=== PATIENT | female | born 1945 | race Caucasian/White ===

== ENCOUNTER 2016-09-29 12:30 | Emergency (ER) | payer MEDICARE ==
[~2016-09-29] VITALS: Ht 154.9 cm; Wt 47.0 kg
[~2016-09-29 12:30] MED LIST: ADVAI500I PO; ALBU0.086 NEB; ALBU1AER INH; DORZSOL RIGHT EYE; FLOV220A INH; LISI-360 PO; SYNT112T PO; TAFL1DRO12 RIGHT EYE; TRIA.1%T TOP
[2016-09-29 12:37] VITALS: BP 161/83; PULSE 78; RESP 18; TEMP 97.7; O2SAT 98
[2016-09-29 12:44] VITALS: BP 161/83; PULSE 78; RESP 18; TEMP 97.7; O2SAT 98
[2016-09-29 13:03] LABS: AUTOMATED NEUTROPHIL # 2.7 TH/MM3 (1.8-7.7); EOSINOPHIL # 0.1 TH/MM3 (0-0.4); HEMO FLAGS DIFF FINAL; LYMPH % 23.5 % (9.0-44.0); LYMPHOCYTE # 1.1 TH/MM3 (1.0-4.8); MEAN CELL VOLUME 90.9 FL (80.0-100.0); MEAN CORPUSCULAR HEMOGLOBIN 29.4 PG (27.0-34.0); MEAN CORPUSCULAR HGB CONC 32.4 % (32.0-36.0); MONO % 13.1 % (0.0-8.0); NEUT % 60.4 % (16.0-70.0); PLATELET COUNT 265 TH/MM3 (150-450); RED BLOOD COUNT 4.62 MIL/MM3 (4.00-5.30); RED CELL DISTRIBUTION WIDTH 14.3 % (11.6-17.2); WHITE BLOOD COUNT 4.5 TH/MM3 (4.0-11.0)
--- NOTE | 2016-09-29 13:07 | PD ---
HPI Chief Complaint: Psychiatric Symptoms Time Seen by Provider: 13:03 Travel History International Travel<30 days: No Contact w/Intl Traveler<30days: No Traveled to known affect area: No History of Present Illness HPI 71-year-old female that presents to the ED for evaluation of involuntary psych evaluation. Patient states that her sister who is power of family law attorney apparently contacted the learning analyst who brought her here for evaluation of psychiatry. Per patient he needs unclear as to why. Per patient her sister has been aggressive towards her and it appears to be related to some family dispute. She does tell me that she does have a history of depression but she doesn't take any medications for this. She denies any pain of any kind. She does have a history of Graves' disease with a tire removed and now takes thyroid medication. She states that she is compliant with her other medications. No diabetes. She denies any homicidal or suicidal ideation to me. No drug or alcohol abuse. She has never been here before for psychiatric evaluation but has been here for medical issues. Patient lives in assisted living facility. Again is unclear as to why she is here. Patient was not Landry acted per brought here voluntarily for psychiatric evaluation which she agrees to do. Symptoms appear to be mild. Unclear length of time. No other further history is obtained. PFSH Past Medical History Hx Anticoagulant Therapy: No Arthritis: Yes Asthma: Yes Autoimmune Disease: Yes (CELIAC, GRAVES DISEASE) Anxiety: No Depression: Yes (AFTER ) Heart Rhythm Problems: No Cancer: No Cardiovascular Problems: Yes High Cholesterol: No Chemotherapy: No Chest Pain: No Congestive Heart Failure: No COPD: No Cerebrovascular Accident: No Diabetes: No Diminished Hearing: No Endocrine: Yes Gastrointestinal Disorders: Yes (IBS) GERD: No Glaucoma: Yes Hiatal Hernia: No Hypertension: Yes Implanted Vascular Access Dvce: Yes Musculoskeletal: Yes Respiratory: Yes (ASTHMA) Sleep Apnea: No Thyroid Disease: Yes Tetanus Vaccination: < 5 Years Influenza Vaccination: Yes ?: Not Menopausal: Yes Dilation and Curettage (D&C): Yes (7 TIMES) Past Surgical History Abdominal Surgery: Yes (HERNIA REPAIR) AICD: No Arteriovenous Shunt: No Cardiac Surgery: No Ear Surgery: No Endocrine Surgery: No Eye Surgery: Yes (LENS FOR CATARACTS) Genitourinary Surgery: No Gynecologic Surgery: Yes (OVARIES REMOVED) Hysterectomy: Yes Insulin Pump: No Joint Replacement: Yes (L KNEE) Neurologic Surgery: No Oral Surgery: No Pacemaker: No Thoracic Surgery: No Other Surgery: Yes (THYROID REMOVED) Social History Alcohol Use: No Tobacco Use: No Substance Use: No Allergies-Medications (Allergen,Severity, Reaction): Coded Allergies: Cat Dander (Verified Allergy, Severe, 01/21/16) Lactose (Verified Allergy, Severe, 01/21/16) Green Jean (Verified Allergy, Intermediate, DIARRHEA, 01/21/16) Vazquez Jean (Verified Allergy, Intermediate, DIARRHEA, 01/21/16) White Jean (Verified Allergy, Intermediate, DIARRHEA, 01/21/16) Barley (Unverified Allergy, Unknown, 01/21/16) Dog Dander (Verified Allergy, Unknown, 01/21/16) [place] (Unverified Allergy, Unknown, 01/21/16) Shellfish (Verified Allergy, Unknown, 01/21/16) Wheat (Verified Allergy, Unknown, 01/21/16) Uncoded Allergies: PYRANTEL (Allergy, Unknown, UNKNOWN., 12/14/15) PEN-X (Adverse Reaction, Severe, Anaphylaxis., 12/14/15) Reported Meds & Prescriptions Reported Meds & Active Scripts Active Triamcinolone Acetonide 0.1 % Cre 1 Applic TOP Q12HR APPLY TO: Reported Lisinopril 10 mg (Lisinopril) 10 Mg Tab Unknown Dose PO DAILY Zioptan (Tafluprost) 0.0015 % Petar 1 Drop RIGHT EYE HS Cosopt Pf (Dorzolamide Hcl-Timolol Maleat) Barbara 1 Drop RIGHT EYE BID Proventil Ud 0.083% (2.5 Mg/3 Ml) (Albuterol Sulfate) 2.5 Mg/3 Ml Inha 2.5 Mg NEB Q6HR NEB Advair Diskus 500/50 (Salmeterol Xinafoate/Fluticasone) Fluticasone/Salmeterol 500/50 Inh 1 Puff PO BID Proair Hfa (Albuterol Sulfate) 8.5 Gm Aero 1 Puff INH Q6H PRN * SHAKE WELL BEFORE USE * Flovent Hfa (Fluticasone Propionate) 220 Mcg Aer 2 Puff INH BID Synthroid (Levothyroxine Sodium) 112 Mcg Tab 112 Mcg PO DAILY Review of Systems Except as stated in HPI: all other systems reviewed are Neg Physical Exam Narrative GENERAL: SKIN: Warm and dry. HEAD: Atraumatic. Normocephalic. EYES: Pupils equal and round. No scleral icterus. No injection or drainage. ENT: No nasal bleeding or discharge. Mucous membranes pink and moist. tongue is midline. No uvula deviation NECK: Trachea midline. No JVD. CARDIOVASCULAR: Regular rate and rhythm. RESPIRATORY: No accessory muscle use. Clear to auscultation. Breath sounds equal bilaterally. GASTROINTESTINAL: Abdomen soft, non-tender, nondistended. Hepatic and splenic margins not palpable. MUSCULOSKELETAL: Extremities without clubbing, cyanosis, or edema. No obvious deformities. Full range of motion of the upper and lower extremities bilaterally. 2+ pulses bilaterally. NEUROLOGICAL: Awake and alert. No obvious cranial nerve deficits. Motor grossly within normal limits. Five out of 5 muscle strength in the arms and legs. Normal speech. PSYCHIATRIC: Appropriate mood and affect; insight and judgment normal. Data Data Last Documented VS Vital Signs Date Time Temp Pulse Resp B/P Pulse Ox O2 Delivery O2 Flow Rate FiO2 09/29/16 12:44 97.7 78 18 161/83 98 Room Air Orders Complete Blood Count With Diff (09/29/16 12:35) Comprehensive Metabolic Panel (09/29/16 12:35) Thyroid Stimulating Hormone (09/29/16 12:35) Urinalysis - C+S If Indicated (09/29/16 12:35) Psych Screen (09/29/16 12:35) Drug Screen, Random Urine (09/29/16 12:35) Alcohol (Ethanol) (09/29/16 12:35) Labs Laboratory Tests Test 09/29/16 12:45 White Blood Count 4.5 TH/MM3 Red Blood Count 4.62 MIL/MM3 Hemoglobin 13.6 GM/DL Hematocrit 42.0 % Mean Corpuscular Volume 90.9 FL Mean Corpuscular Hemoglobin 29.4 PG Mean Corpuscular Hemoglobin 32.4 % Concent Red Cell Distribution Width 14.3 % Platelet Count 265 TH/MM3 Mean Platelet Volume 10.3 FL Neutrophils (%) (Auto) 60.4 % Lymphocytes (%) (Auto) 23.5 % Monocytes (%) (Auto) 13.1 % Eosinophils (%) (Auto) 2.0 % Basophils (%) (Auto) 1.0 % Neutrophils # (Auto) 2.7 TH/MM3 Lymphocytes # (Auto) 1.1 TH/MM3 Monocytes # (Auto) 0.6 TH/MM3 Eosinophils # (Auto) 0.1 TH/MM3 Basophils # (Auto) 0.0 TH/MM3 CBC Comment DIFF FINAL Differential Comment Sodium Level 136 MEQ/L Potassium Level 3.7 MEQ/L Chloride Level 106 MEQ/L Carbon Dioxide Level 22.8 MEQ/L Anion Gap 7 MEQ/L Blood Urea Nitrogen 8 MG/DL Creatinine 0.82 MG/DL Estimat Glomerular Filtration 69 ML/MIN Rate Random Glucose 108 MG/DL Calcium Level 9.1 MG/DL Aspartate Amino Transf 20 U/L (AST/SGOT) Albumin 3.7 GM/DL MDM Medical Decision Making Medical Screen Exam Complete: Yes Emergency Medical Condition: Yes Medical Record Reviewed: Yes Interpretation(s) CBC & BMP Diagram 09/29/16 12:45 Differential Diagnosis Depression versus suicidal ideation versus anxiety versus adjustment disorder versus mood disorder versus bipolar disorder versus schizophrenia versus paranoid disorder versus psychosis versus substance abuse versus alcohol abuse versus alcohol induced psychosis versus homicidality addition versus cutting versus personality disorder Narrative Course 71-year-old female that presents to the ED for evaluation of psych. Patient was properly examined and was found to have signs and symptoms consistent with psychiatric illness. No sign of acute medical distress. Labs were drawn. Patient will be medically clear. Okay to be seen by psych. Mental health screening was discussed with the patient. Diagnosis Primary Impression: Mood disorder Khadar Black Sep 29, 2016 13:07
[2016-09-29 13:21] LABS: ANION GAP 7 MEQ/L (5-15); AST (GOT) 20 U/L (15-37); BICARBONATE 22.8 MEQ/L (21.0-32.0); BLOOD UREA NITROGEN 8 MG/DL (7-18); CHLORIDE 106 MEQ/L (98-107); GLOMERULAR FILTRATION RATE 69 ML/MIN (>89); POTASSIUM 3.7 MEQ/L (3.5-5.1); SODIUM (NA) 136 MEQ/L (136-145)
[2016-09-29 13:34] LABS: ALKALINE PHOSPHATASE 80 U/L (45-117); ALT (GPT) 23 U/L (10-53); TOTAL BILIRUBIN ADULT 0.4 MG/DL (0.2-1.0)
[2016-09-29] MEDS ORDERED: RITA20TA PO (14:50)
[2016-09-29] MEDS ORDERED: ZYRT10CA PO (14:52)
[2016-09-29] MEDS ORDERED: LISI10TA3 PO (14:52)
[2016-09-29] MEDS ORDERED: ACETA500 PO (14:54)
[2016-09-29] MEDS ORDERED: DIFL0.0512 RIGHT EYE (14:54)
[2016-09-29] MEDS ORDERED: TAFL0.00 RIGHT EYE (14:54)
[2016-09-29] MEDS ORDERED: SYNT88TA PO (14:54)
[2016-09-29] MEDS ORDERED: DORZ1SOL2 EACH EYE (15:07)
[2016-09-29] MEDS ORDERED: ADVA500A INH (15:07)
[2016-09-29] MEDS ORDERED: ALBU0.08 NEB (15:07)
[2016-09-29] MEDS ORDERED: ALBUAER3 INH (15:07)
[2016-09-29 16:37] LABS: BLOOD, URINE NEG (NEG); COMMENT (UR) CULT NOT INDICATED; CULTURE IF INDICATED CULT NOT INDICATED; GLUCOSE,URINE NEG (NEG); KETONE, URINE NEG (NEG); MUCUS URINE FEW /lpf (OCC); NITRITE,URINE NEG (NEG); SQUAMOUS EPITHELIAL CELL URINE 1 /hpf (0-5); URINE COLOR LIGHT-YELLOW (YELLW/STRAW)
[2016-09-29 17:25] LABS: AMPHETAMINE, URINE NEG (NEG); BARBITURATES, URINE NEG (NEG); COCAINE, URINE NEG (NEG)
== END 2016-09-29 18:22 | disposition home or self-care (01) ==
LOC: NEPE 12:30 → NEPJ 18:22
DX: F39 Unspecified mood [affective] disorder (principal); F32.9 Major depressive disorder, single episode, unspecified; J45.909 Unspecified asthma, uncomplicated; K58.9 Irritable bowel syndrome, unspecified; I10 Essential (primary) hypertension
CPT/HCPCS: 80053; 80307; 81001; 84443; 85025; 99283

== ENCOUNTER 2016-10-02 12:36 | Emergency (ER) | payer MEDICARE, OTHER ==
[~2016-10-02] VITALS: Ht 154.9 cm; Wt 50.0 kg
[~2016-10-02 12:36] MED LIST changes: +ACETA500 PO; +ADVA500A INH; -ADVAI500I PO; +ALBU0.08 NEB; -ALBU0.086 NEB; -ALBU1AER INH; +ALBUAER3 INH; +DIFL0.0512 RIGHT EYE; +DORZ1SOL2 EACH EYE; -DORZSOL RIGHT EYE; -FLOV220A INH; -LISI-360 PO; +LISI10TA3 PO; +RITA20TA PO; -SYNT112T PO; +SYNT88TA PO; +TAFL0.00 RIGHT EYE; -TAFL1DRO12 RIGHT EYE; -TRIA.1%T TOP; +ZYRT10CA PO
[2016-10-02 12:59] VITALS: BP 134/63; PULSE 71; RESP 16; TEMP 98; O2SAT 100
--- NOTE | 2016-10-02 13:14 | PD ---
HPI Chief Complaint: Psychiatric Symptoms Time Seen by Provider: 12:55 Travel History International Travel<30 days: No Contact w/Intl Traveler<30days: No Traveled to known affect area: No History of Present Illness HPI The patient was seen and examined in the presence of the nurse. This patient is brought in under police Landry act. According to the Landry act form, she was found wandering around outside naked near her [place]IN[place]. Patient cannot give a cohesive answers to what she was doing. She denies hallucination or suicidal ideation. Symptoms severity is moderate. No alleviating factors. Duration one day. PFSH Past Medical History Hx Anticoagulant Therapy: No Arthritis: Yes Asthma: Yes Autoimmune Disease: Yes (CELIAC, GRAVES DISEASE) Anxiety: No Depression: Yes (AFTER ) Heart Rhythm Problems: No Cancer: No Cardiovascular Problems: Yes High Cholesterol: No Chemotherapy: No Chest Pain: No Congestive Heart Failure: No COPD: No Cerebrovascular Accident: No Diabetes: No Diminished Hearing: No Endocrine: Yes Gastrointestinal Disorders: Yes (IBS) GERD: No Glaucoma: Yes Hiatal Hernia: No Hypertension: Yes Implanted Vascular Access Dvce: Yes Musculoskeletal: Yes Respiratory: Yes (ASTHMA) Sleep Apnea: No Thyroid Disease: Yes Menopausal: Yes Dilation and Curettage (D&C): Yes (7 TIMES) Past Surgical History Abdominal Surgery: Yes (HERNIA REPAIR) AICD: No Arteriovenous Shunt: No Cardiac Surgery: No Ear Surgery: No Endocrine Surgery: No Eye Surgery: Yes (LENS FOR CATARACTS) Genitourinary Surgery: No Gynecologic Surgery: Yes (OVARIES REMOVED) Hysterectomy: Yes Insulin Pump: No Joint Replacement: Yes (L KNEE) Neurologic Surgery: No Oral Surgery: No Pacemaker: No Thoracic Surgery: No Other Surgery: Yes (THYROID REMOVED) Social History Alcohol Use: No Tobacco Use: No Substance Use: No Allergies-Medications (Allergen,Severity, Reaction): Coded Allergies: Cat Dander (Verified Allergy, Severe, 10/02/16) Lactose (Verified Allergy, Severe, 10/02/16) Green Jean (Verified Allergy, Intermediate, DIARRHEA, 10/02/16) Vazquez Jean (Verified Allergy, Intermediate, DIARRHEA, 10/02/16) White Jean (Verified Allergy, Intermediate, DIARRHEA, 10/02/16) Barley (Unverified Allergy, Unknown, 10/02/16) Dog Dander (Verified Allergy, Unknown, 10/02/16) [place] (Unverified Allergy, Unknown, 10/02/16) Shellfish (Verified Allergy, Unknown, 10/02/16) Wheat (Verified Allergy, Unknown, 10/02/16) Uncoded Allergies: PYRANTEL (Allergy, Unknown, UNKNOWN., 12/14/15) PEN-X (Adverse Reaction, Severe, Anaphylaxis., 12/14/15) Reported Meds & Prescriptions Reported Meds & Active Scripts Active Reported Proair Hfa 8.5 GM Inh (Albuterol Sulfate) 90 Mcg/Act Aer 1-2 Puff INH DAILY PRN 108 mcg/actuation Advair Diskus Inh (Fluticasone-Salmeterol Inh) 500-50 Mcg/Blist Aer 1 Puff INH BID Rinse mouth after use. Albuterol Neb (Albuterol Sulfate) 2.5 Mg/3 Ml Neb 2.5 Mg NEB 2-4 TIMES NEB PRN While awake Cosopt Opth Drops (Dorzolamide-Timolol Opth Drops) 22.3-6.8 Mg/Ml Soln 1 Drop EACH EYE BID Zioptan Opth Drops (Tafluprost Opth Drops) 0.015 Mg/Ml Drops 1 Drop RIGHT EYE DAILY Durezol Opth (Difluprednate Opth) 0.05% Emul 1 Drop RIGHT EYE DAILY Diamox Sequels ER 12 HR (Acetazolamide) 500 Mg Cap 500 Mg PO DAILY Synthroid (Levothyroxine Sodium) 88 Mcg Tab 88 Mcg PO DAILY Lisinopril 10 Mg Tab 10 Mg PO DAILY Zyrtec Allergy (Cetirizine HCl) 10 Mg Cap 10 Mg PO DAILY Ritalin IR (Methylphenidate HCl) 20 Mg Tab 30 Mg PO BID @0800 & 1300 Review of Systems General / Constitutional: No: Fever Eyes: No: Visual changes HENT: No: Headaches Cardiovascular: No: Chest Pain or Discomfort Respiratory: No: Shortness of Breath Gastrointestinal: No: Abdominal Pain Genitourinary: No: Dysuria Musculoskeletal: No: Pain Skin: No Rash Neurologic: No: Weakness Psychiatric: Positive: Disorder of Thought, No: Depression Endocrine: No: Polydipsia Hematologic/Lymphatic: No: Easy Bruising Physical Exam Narrative GENERAL: Thin pleasant well-developed patient in no apparent distress. SKIN: Focused skin assessment reveals no rash and nodules. Skin is Warm and dry. Both legs from the mid thigh are covered in superficial scratches HEAD: Atraumatic. Normocephalic. EYES: Pupils equal and round. No scleral icterus. No injection or drainage. ENT: No nasal bleeding or discharge. Mucous membranes pink and moist. NECK: Trachea midline. No JVD. No meningeal signs CARDIOVASCULAR: Regular rate and rhythm. No murmur appreciated. RESPIRATORY: No accessory muscle use. Clear to auscultation. Breath sounds equal bilaterally. GASTROINTESTINAL: Abdomen soft, non-tender, nondistended. Hepatic and splenic margins not palpable. MUSCULOSKELETAL: No obvious deformities. No clubbing. No cyanosis. No edema. NEUROLOGICAL: Awake and alert. No obvious cranial nerve deficits. Motor grossly within normal limits. Normal speech. PSYCHIATRIC: Appropriate mood and affect; insight and judgment reduced . Data Data Last Documented VS Vital Signs Date Time Temp Pulse Resp B/P Pulse Ox O2 Delivery O2 Flow Rate FiO2 10/02/16 12:59 98.0 71 16 134/63 100 Room Air Orders Diet Regular Basic (10/02/16 Lunch) Complete Blood Count With Diff (10/02/16 13:01) Basic Metabolic Panel (Bmp) (10/02/16 13:01) Urinalysis - C+S If Indicated (10/02/16 13:01) Iv Access Insert/Monitor (10/02/16 13:01) Psych Screen (10/02/16 13:01) Drug Screen, Random Urine (10/02/16 13:01) Alcohol (Ethanol) (10/02/16 13:01) Labs Laboratory Tests Test 10/02/16 13:00 White Blood Count 9.9 TH/MM3 Red Blood Count 4.83 MIL/MM3 Hemoglobin 14.3 GM/DL Hematocrit 43.7 % Mean Corpuscular Volume 90.5 FL Mean Corpuscular Hemoglobin 29.6 PG Mean Corpuscular Hemoglobin 32.7 % Concent Red Cell Distribution Width 13.9 % Platelet Count 264 TH/MM3 Mean Platelet Volume 10.7 FL Neutrophils (%) (Auto) 73.6 % Lymphocytes (%) (Auto) 13.2 % Monocytes (%) (Auto) 11.7 % Eosinophils (%) (Auto) 0.9 % Basophils (%) (Auto) 0.6 % Neutrophils # (Auto) 7.3 TH/MM3 Lymphocytes # (Auto) 1.3 TH/MM3 Monocytes # (Auto) 1.2 TH/MM3 Eosinophils # (Auto) 0.1 TH/MM3 Basophils # (Auto) 0.1 TH/MM3 CBC Comment DIFF FINAL Differential Comment Sodium Level 137 MEQ/L Potassium Level 3.5 MEQ/L Chloride Level 105 MEQ/L Carbon Dioxide Level 22.2 MEQ/L Anion Gap 10 MEQ/L Blood Urea Nitrogen 11 MG/DL Creatinine 0.81 MG/DL Estimat Glomerular Filtration 70 ML/MIN Rate Random Glucose 89 MG/DL Calcium Level 9.3 MG/DL Ethyl Alcohol Level LESS THAN 3 MG/DL MDM Medical Decision Making Medical Screen Exam Complete: Yes Emergency Medical Condition: Yes Medical Record Reviewed: Yes Differential Diagnosis Psychosis, electrolyte abnormality, drug intoxication Narrative Course I have reviewed the patient's electronic medical record. IV placed CBC is normal Metabolic profile is normal Alcohol level is negative Urinalysis is ordered and I will review it but she has not urinated yet Toxicology screen pending but not going to [employer] exchange architect Patient is here under Landry act so I ordered psychiatric evaluation. Patient is medically stable as can be made. Disposition will be per psychiatry after psychiatric screening. We'll add antibiotic therapy to the makes if urinalysis is abnormal but not suspected to be the cause of situation. 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
[2016-10-02 13:59] LABS: AUTOMATED NEUTROPHIL # 7.3 TH/MM3 (1.8-7.7); BASOPHIL # 0.1 TH/MM3 (0-0.2); BASOPHIL % 0.6 % (0.0-2.0); EOSINOPHIL # 0.1 TH/MM3 (0-0.4); EOSINOPHIL % 0.9 % (0.0-4.0); HEMATOCRIT 43.7 % (35.0-46.0); HEMO FLAGS DIFF FINAL; LYMPH % 13.2 % (9.0-44.0); LYMPHOCYTE # 1.3 TH/MM3 (1.0-4.8); MEAN CELL VOLUME 90.5 FL (80.0-100.0); MEAN CORPUSCULAR HEMOGLOBIN 29.6 PG (27.0-34.0); MEAN CORPUSCULAR HGB CONC 32.7 % (32.0-36.0); MONO % 11.7 % (0.0-8.0); NEUT % 73.6 % (16.0-70.0); PLATELET COUNT 264 TH/MM3 (150-450); RED BLOOD COUNT 4.83 MIL/MM3 (4.00-5.30); RED CELL DISTRIBUTION WIDTH 13.9 % (11.6-17.2); WHITE BLOOD COUNT 9.9 TH/MM3 (4.0-11.0)
[2016-10-02 14:13] LABS: ANION GAP 10 MEQ/L (5-15); BICARBONATE 22.2 MEQ/L (21.0-32.0); BLOOD UREA NITROGEN 11 MG/DL (7-18); CHLORIDE 105 MEQ/L (98-107); GLOMERULAR FILTRATION RATE 70 ML/MIN (>89); POTASSIUM 3.5 MEQ/L (3.5-5.1); SODIUM (NA) 137 MEQ/L (136-145)
[2016-10-02 16:32] LABS: BACTERIA, URINE RARE /hpf; BLOOD, URINE NEG (NEG); COMMENT (UR) CULTURE INDICATED; CULTURE IF INDICATED CULTURE INDICATED; GLUCOSE,URINE NEG (NEG); HYALINE CAST, URINE 1 /lpf (RARE); KETONE, URINE NEG (NEG); MUCUS URINE FEW /lpf (OCC); NITRITE,URINE NEG (NEG); PH, URINE 6.5 (5.0-8.5); SQUAMOUS EPITHELIAL CELL URINE 3 /hpf (0-5); URINE COLOR LIGHT-YELLOW (YELLW/STRAW)
[2016-10-02 16:36] LABS: AMPHETAMINE, URINE NEG (NEG); BARBITURATES, URINE NEG (NEG); COCAINE, URINE NEG (NEG)
[2016-10-02] MEDS ORDERED: BACT800T5 PO (17:51)
[2016-10-02 18:30] VITALS: BP 140/63; PULSE 84; RESP 18; TEMP 99.1; O2SAT 98
[2016-10-02] MEDS ORDERED: SULFAMETHOXAZOLE-TRIMETHOPRIM DS 800-160 MG TAB PO ONE (18:30)
== END 2016-10-02 20:45 | disposition home or self-care (01) ==
LOC: NEPC 12:36 → NEPJ 20:45
DX: F29 Unspecified psychosis not due to a substance or known physiological condition (principal); R82.90 Unspecified abnormal findings in urine; J45.909 Unspecified asthma, uncomplicated; E05.00 Thyrotoxicosis with diffuse goiter without thyrotoxic crisis or storm; I10 Essential (primary) hypertension; K58.9 Irritable bowel syndrome, unspecified
CPT/HCPCS: 80048; 80307; 81001; 85025; 87086; 99283